=== PATIENT | male | born 1970 | race Caucasian/White ===

== ENCOUNTER 2016-10-29 09:50 | Emergency (ER) ==
[2016-10-29 09:53] VITALS: BP 136/81; TEMP 98.4; BMI 54.5
[2016-10-29] MEDS ORDERED: MORPHINE 4 MG/ML SYRINGE IM STA (10:18)
--- NOTE | 2016-10-29 12:04 | CT ---
EXAM: CT head without contrast HISTORY: Fall with pain COMPARISON: Same day cervical spine with prior CT head 07/24/2011 TECHNIQUE: Serial axial images of the brain were obtained from the skull base to the vertex without IV contrast. FINDINGS: The ventricles, cisterns and sulci demonstrate mild generalized volume loss. The bautista-wh ite matter junction is maintained. There is minimal low attenuation scattered in the periventricula r white matter.No midline shift or mass is identified. There is no abnormal intra or extra-axial fl uid collection. The paranasal sinuses demonstrate minimal mucosal thickening.. The mastoid air wan ls demonstrate scattered fluid within both. The osseous calvarium is intact. Soft tissues demonstra te minimal subcutaneous thickening and stranding posterior left occipital region that may represent a small hematoma. IMPRESSION: 1. No acute intracranial hemorrhage or acute abnormality. 2. Mild generalized volume loss and scattered microangiopathy. 3. Mild paranasal sinus mucosal thickening and scattered fluid in the mastoid air cells.
--- NOTE | 2016-10-29 12:11 | CT ---
EXAM: CT thoracic spine without contrast HISTORY: Back pain. COMPARISON: CT thorax 07/03/2016 and 02/26/2016 TECHNIQUE: Serial axial images of the thoracic spine were obtained without contrast. These were vi ewed in multiple planes. FINDINGS: There is multilevel degenerative disease of the spine with scattered anterior disc osteoph ytes. There is no lytic or blastic lesion identified. The degree of degenerative disease and anter ior disc osteophytes are relatively unchanged from 2016. There is hardware and rib abnormality in t he lateral left fifth sixth and seventh ribs. No acute osseous abnormality of the ribs is identifie d. The soft tissues demonstrate no central or neural foraminal narrowing with scattered areas of fa cet arthropathy. There is a broad-based disc bulge at L3 with questionable mild central narrowing o n the last axial image. Soft tissues demonstrate IVC filter is in place. There is diffuse low atte nuation in the liver. The lungs demonstrate mild fibrosis and adjacent to the left rib hardware. IMPRESSION: 1. No acute compression fracture or subluxation. 2. Multilevel degenerative disease throughout the thoracic spine which is not significantly changed since CT chest 2016. There is questionable mild central narrowing at L3. 3. IVC filter is in place with stable left lateral rib hardware and osteophytes.
--- NOTE | 2016-10-29 12:15 | CT ---
EXAM: CT cervical spine without contrast HISTORY: Pain, fall COMPARISON: None TECHNIQUE: CT cervical spine performed without intravenous contrast. Coronal and sagittal reformat michael images obtained. FINDINGS: There is image degradation in the lower cervical spine that limits evaluation. Vertebral bodies normal in height. No fracture. No subluxation. Mild multilevel intervertebral disc space n arrowing. Multilevel marginal osteophyte formation. Mild multilevel facet and uncovertebral hypert rophy. Central canal grossly patent. Prevertebral soft tissues appear normal. There is right mastoi d effusion, incompletely imaged with left mastoid air cells not imaged IMPRESSION: 1. No fracture or subluxation. 2. Chronic discogenic degenerative disease and facet arthrosis. 3. Straightening of the normal cervical lordosis. 4. Right mastoid effusion, incompletely imaged. Left mastoid air cells not imaged.
--- NOTE | 2016-10-29 12:16 | ED.PDOC ---
General ED Provider: Dr. SHELLI SILVA Chief Complaint: Fall Stated Complaint: HEADACHE, NECK PAIN , UPPER BACK PAIN Time Seen by Physician: 10:00 (NURSE AT [facility] AT ALL TIMES ) Mode of Arrival: Wheelchair Information Source: Patient, Family Exam Limitations: No limitations Nursing and Triage Documentation Reviewed and Agree: Yes Trauma/Injury Complaint Exam - Trauma Complaint/Exam Location of Pain or Injury: Reports: Head, Neck, Back Mechanism of Injury: Reports: Fall Onset/Duration: 1 HR Symptoms Are: Still present Initial Severity: Moderate Current Severity: Mild Character: Reports: Aching Aggravating: Reports: None Associated Signs and Symptoms: Denies: LOC, Confusion, Memory loss, Lethargy, Vomiting, Bleeding, Bruising, Swelling, Extremity disuse, Painful respiration, Hoarseness, Dysphagia, Hemoptysis, Significant blood loss Nexus Low Risk Criteria: No evidence of intoxicat., No Altered LOC, No focal neuro deficit, No distracting injuries Glascow Coma Scale (see protocol): 15 Skin Findings: Present: Normal findings Differential Diagnoses: Abrasion, Sprain, Strain Review of Systems - Review Of Systems Constitutional: Reports: No symptoms Eyes: Reports: No symptoms Ears, Nose, Mouth, Throat: Reports: No symptoms Respiratory: Reports: No symptoms Cardiac: Reports: No symptoms GI: Reports: No symptoms : Reports: No symptoms Musculoskeletal: Reports: No symptoms Skin: Reports: No symptoms Neurological: Reports: No symptoms Endocrine: Reports: No symptoms Hematologic/Lymphatic: Reports: No symptoms All Other Systems: Reviewed and Negative Past Medical History - Past Medical History Endocrine: Reports: None Cardiovascular: Reports: Hypertension Respiratory: Reports: COPD, Unknown (note IVC filter present on CT) Hematological: Reports: None Gastrointestinal: Reports: None Genitourinary: Reports: CKD Neuro/Psych: Reports: Seizure, Depression, PTSD, Other (TBI) Musculoskeletal: Reports: Arthritis Cancer: Reports: Unknown Other Pertinent Past Medical History: history falloff ladder does not recall but head inury and rib fractures - Surgical History General Surgical History: Reports: Orthopedic ( SHOULDER SURGERY, KNEE SURGERY , LEFT WRIST,nicholas knees, shoulders), Other (hernia when infant, ), Unknown ( LEFT THOROCOTOMY, BRAIN INJURY) - Family History Family History: Reports: Unknown - Social History Smoking Status: Current every day smoker, Light tobacco smoker Hx Substance Use: No Alcohol Screening: None Physical Exam - Physical Exam Appearance: Well-appearing, No pain distress, Well-nourished Eyes: LISA, EOMI, Conjunctiva clear ENT: Ears normal, Nose normal, Oropharynx normal Respiratory: Airway patent, Breath sounds clear, Breath sounds equal, Respirations nonlabored Cardiovascular: RRR, Pulses normal, No rub, No murmur GI/: Soft, Nontender, No masses, Bowel sounds normal, No Organomegaly Musculoskeletal: Normal strength, ROM intact, No edema, No calf tenderness Skin: Warm, Dry, Normal color Neurological: Sensation intact, Motor intact, Reflexes intact, Cranial nerves intact, Alert, Oriented Psychiatric: Affect appropriate, Mood appropriate Critical Care Note - Critical Care Note Total Time (mins): 0 Course - Course Orders, Labs, Meds: Orders Category Date Time Status Morphine Sulfate [Morphine 4 mg/ml Syringe] MEDS 10/29/16 10:18 Discontinued 4 mg IM ONCE STA CT CERVICAL SPINE W/O CONTRAST Stat RADS 10/29/16 10:[address] HEAD W/O CONTRAST Stat RADS 10/29/16 10:[address] THORACIC SPINE W/O CONTRAST Stat RADS 10/29/16 10:20 Completed Medications Discontinued Medications Generic Name Dose Route Start Last Admin Trade Name Freq PRN Reason Stop Dose Admin Morphine Sulfate 4 mg 10/29/16 10:18 10/29/16 10:38 Morphine 4 Mg/Ml Syringe IM 10/29/16 10:19 4 mg ONCE STA Administration Vital Signs: Temp Pulse Resp BP Pulse Ox 10/29/16 09:51 98.4 F 81 24 136/81 96 Departure - Departure Time of Disposition: 12:16 Disposition: HOME SELF-CARE Discharge Problem: Neck pain Back pain Qualifiers: Back pain location: thoracic back pain Instructions: Neck Pain (ED), Acute Neck Pain (ED) Condition: Good Pt referred to PMD for follow-up: No Additional Instructions: Please call your Family Physician as soon as possible to schedule a follow-up appointment. Prescriptions: Hydrocodone/Acetaminophen [[place] 5-325 Tablet] 1 each PO Q6HR PRN #4 tablet PRN Reason: PAIN Allergies/Adverse Reactions: Allergies carbamazepine [From Tegretol] Adverse Reaction (Verified 10/29/16 09:53) codeine Adverse Reaction (Verified 10/29/16 09:53) Home Medications: Ambulatory Orders Levetiracetam [Keppra] 2,000 mg PO BID 09/10/15 Venlafaxine HCl [Effexor] 150 mg PO TID 09/10/15 Donepezil HCl [Aricept] 10 mg PO DAILY 03/12/16 Lisinopril/Hydrochlorothiazide [Lisinopril-Hctz 20-25 Mg Tab] 1 each PO DAILY Hydrocodone/Acetaminophen [[place] 5-325 Tablet] 1 each PO Q6HR PRN #4 tablet
== END 2016-10-29 12:22 | disposition home or self-care (01) ==
LOC: ED 09:50
DX: M54.2 Cervicalgia (principal); M54.6 Pain in thoracic spine; R51 Headache; F17.210 Nicotine dependence, cigarettes, uncomplicated; Z79.899 Other long term (current) drug therapy; W19.XXXA Unspecified fall, initial encounter
CPT/HCPCS: 96372; 99283

== ENCOUNTER 2016-11-23 14:54 | Emergency (ER) ==
[2016-11-23 14:54] VITALS: BMI 54.5
[2016-11-23 15:00] VITALS: BP 100/80; TEMP 97.8
--- NOTE | 2016-11-23 15:16 | ED.PDOC ---
General ED Provider: Dr. SHELLI SILVA Chief Complaint: Fall Stated Complaint: seizures , chest wall pain Time Seen by Physician: 14:55 (has a generalized seizure event and fell has chest wall pain) Mode of Arrival: Wheelchair Information Source: Patient Exam Limitations: No limitations Nursing and Triage Documentation Reviewed and Agree: Yes (seen with [facility] AT ALL TIMES ) Neurological Complaint Exam - Seizure Complaint/Exam Onset/Duration: SEIZURE 20 MIN AT [facility] Symptoms Are: Resolved Episodes Lasting: Minutes Failed to Regain Consciousness: No Severity: Self-limited Character: Generalized Aggravating: Reports: None Alleviating: Reports: Spontaneous resolution Associated Signs and Symptoms: Denies: Anxiety, Emotional distress, Impaired speech, Bladder incontinence, Bowel incontinence, Trauma, Illness, Vomiting, Lethargy, Apnea Related History: Reports: Similar episode SAH Risk Factors: Reports: None SDH Risk Factors: Reports: None Related Surgical History: Reports: None Carotid Bruit Present: No Cephalohematoma Present: No Tongue Bitten: No Neck Pain Present: No Glascow Coma Scale (see protocol): 15 Nystagmus Present: No Gag Reflex Present: Yes Aphasia: Present: None Meningeal Signs Positive: No Focal Weakness: Present: None Focal Sensory Loss: Reports: None Gait: Normal Pronator Drift: Present: None Babinski Sign: Negative Right, Negative Left Differential Diagnoses: Seizure Review of Systems - Review Of Systems Constitutional: Reports: No symptoms Eyes: Reports: No symptoms Ears, Nose, Mouth, Throat: Reports: No symptoms Respiratory: Reports: No symptoms Cardiac: Reports: No symptoms GI: Reports: No symptoms : Reports: No symptoms Musculoskeletal: Reports: Other (CHEST WALL INJURY) Skin: Reports: No symptoms Neurological: Reports: No symptoms Endocrine: Reports: No symptoms Hematologic/Lymphatic: Reports: No symptoms All Other Systems: Reviewed and Negative Past Medical History - Past Medical History Endocrine: Reports: None Cardiovascular: Reports: Hypertension Respiratory: Reports: COPD, Unknown (note IVC filter present on CT) Hematological: Reports: None Gastrointestinal: Reports: None Genitourinary: Reports: CKD Neuro/Psych: Reports: Seizure, Depression, PTSD, Other (TBI) Musculoskeletal: Reports: Arthritis Cancer: Reports: Unknown Other Pertinent Past Medical History: history falloff ladder does not recall but head inury and rib fractures - Surgical History General Surgical History: Reports: Orthopedic ( SHOULDER SURGERY, KNEE SURGERY , LEFT WRIST,nicholas knees, shoulders), Other (hernia when , ), Unknown ( LEFT THOROCOTOMY, BRAIN INJURY) - Family History Family History: Reports: Unknown - Social History Smoking Status: Current every day smoker, Light tobacco smoker Hx Substance Use: No Alcohol Screening: None - Immunizations Tetanus Shot up to Date: Yes Physical Exam - Physical Exam Appearance: Well-appearing, No pain distress, Well-nourished Eyes: LISA, EOMI, Conjunctiva clear ENT: Ears normal, Nose normal, Oropharynx normal Respiratory: Airway patent, Breath sounds clear, Breath sounds equal, Respirations nonlabored Cardiovascular: RRR, Pulses normal, No rub, No murmur GI/: Soft, Nontender, No masses, Bowel sounds normal, No Organomegaly Musculoskeletal: Normal strength, ROM intact, No edema, No calf tenderness Skin: Warm, Dry, Normal color Neurological: Sensation intact, Motor intact, Reflexes intact, Cranial nerves intact, Alert, Oriented Psychiatric: Affect appropriate, Mood appropriate Critical Care Note - Critical Care Note Total Time (mins): 0 Course - Course Orders, Labs, Meds: Orders Category Date Time Status CBC W/ AUTO DIFF Stat LAB 11/23/16 15:08 Ordered COMPREHENSIVE METABOLIC PANEL Stat LAB 11/23/16 15:08 Ordered CREATINE KINASE Stat LAB 11/23/16 15:08 Ordered TROPONIN I Stat LAB 11/23/16 15:[address] HEAD W/O CONTRAST Stat RADS 11/23/16 15:08 Ordered Vital Signs: Temp Pulse Resp BP Pulse Ox 11/23/16 14:54 97.8 F 96 H 20 100/80 95 Departure - Departure Time of Disposition: 15:16 (LEFT MD MONSTER HELD PAIN MEDS FOR CHEST WALL INJURY STATED THIS OCCURED AT [facility] AFTER A GENERAALIZED SEIZURES WHICH HAD RESOLVED REPLENISHMENT ANALYST WITH NO RESIDUAL EFFECTS. PAIN MEDS WERE WITHELDUNITI HEAD CT , PT BECAME VERY UPSET LEFT MONSTER SWAN PRESENT AT ALL TIMES ) Disposition: AMA Discharge Problem: Seizure Instructions: Epilepsy (ED) Condition: Good Pt referred to PMD for follow-up: No Additional Instructions: Please call your Family Physician as soon as possible to schedule a follow-up appointment. Allergies/Adverse Reactions: Allergies carbamazepine [From Tegretol] Adverse Reaction (Verified 10/29/16 09:53) codeine Adverse Reaction (Verified 10/29/16 09:53) Home Medications: Ambulatory Orders Levetiracetam [Keppra] 2,000 mg PO BID 09/10/15 Venlafaxine HCl [Effexor] 150 mg PO TID 09/10/15 Donepezil HCl [Aricept] 10 mg PO DAILY 03/12/16 Lisinopril/Hydrochlorothiazide [Lisinopril-Hctz 20-25 Mg Tab] 1 each PO DAILY Hydrocodone/Acetaminophen [[place] 5-325 Tablet] 1 each PO Q6HR PRN #4 tablet Disposition Discussed With: Patient, Family
== END 2016-11-23 15:15 | disposition left against medical advice (07) ==
LOC: ED 14:54
DX: R56.9 Unspecified convulsions (principal); S29.9XXA Unspecified injury of thorax, initial encounter; R07.89 Other chest pain; W18.39XA Other fall on same level, initial encounter; Y92.511 Restaurant or cafe as the place of occurrence of the external cause; F17.210 Nicotine dependence, cigarettes, uncomplicated; Z79.899 Other long term (current) drug therapy
CPT/HCPCS: 99284